=== PATIENT | female | born 1960 | race Caucasian/White ===

== ENCOUNTER 2019-03-02 15:06 | Emergency (ER) | payer OTHER, MEDICAID ==
[2019-03-02] MEDS: LACTATED RINGER'S 1,000 ML IV ×2 (16:19→18:42)
[2019-03-02] MEDS: KETOROLAC 15 MG INJ IV (16:19)
[2019-03-02] MEDS: FAMOTIDINE 20 MG TAB PO (16:19)
[2019-03-02] MEDS: ONDANSETRON 4 MG INJ IV (16:20)
[2019-03-02] MEDS: LIDOCAINE/MYLANTA 40 ML BTL PO (16:20)
[2019-03-02] MEDS: BELLADONNA/PHENOBARBITAL TAB PO (16:20)
[2019-03-02 16:23] LABS: ADD MAN DIFF? NO
[2019-03-02 16:24] LABS: BASOPHILS % 0.2 % (0.0-2.0); HEMATOCRIT 43.8 % (37.0-47.0); HEMOGLOBIN 13.8 g/dl (12.0-16.0); LYMPHOCYTES # 0.8 10^3/ul (0.8-2.9); LYMPHOCYTES % 6.6 % (15.0-51.0); MEAN CORPUSCULAR HEMOGLOBIN 24.6 pg (29.0-33.0); MEAN CORPUSCULAR HGB CONC 31.5 g/dl (32.0-37.0); MEAN CORPUSCULAR VOLUME 78.1 fl (82.0-101.0); MEAN PLATELET VOLUME 9.4 fl (7.4-10.4); MONOCYTE # 0.4 10^3/ul (0.3-0.9); MONOCYTES % 3.2 % (0.0-11.0); NEUTROPHIL # 11.3 10^3/ul (1.6-7.5); NEUTROPHILS % 89.5 % (39.0-77.0); PLATELET COUNT 227 10^3/UL (140-415); RED BLOOD COUNT 5.61 10^6/ul (4.20-5.40); RED CELL DISTRIBUTION WIDTH 14.9 % (11.5-14.5)
[2019-03-02 16:24] LABS: WHITE BLOOD COUNT 12.6 10^3/ul (4.8-10.8)
[2019-03-02 16:39] LABS: ADD UMIC YES; UR ASCORBIC ACID 20 mg/dL (NEGATIVE); UR BACTERIA FEW /HPF (NONE SEEN); UR BILIRUBIN (Dip) NEGATIVE (NEGATIVE); UR BLOOD (Dip) NEGATIVE (NEGATIVE); UR CLARITY CLOUDY (CLEAR); UR COLOR AMBER (YELLOW); UR GLUCOSE (Dip) NEGATIVE (NEGATIVE); UR KETONES (Dip) TRACE mg/dL (NEGATIVE); UR LEUKOCYTE ESTERASE (Dip) 1+ Leu/ul (NEGATIVE); UR MUCUS MANY /HPF (NONE SEEN); UR NITRITE (Dip) POSITIVE (NEGATIVE); UR NONSQUAMOUS EPITHELIAL CELL 2 /HPF (NONE SEEN); UR RBC 2 /HPF (0-5); UR SPECIFIC GRAVITY (Dip) 1.021 (1.003-1.030); UR SQUAMOUS EPITHELIAL CELL MODERATE /HPF (FEW); UR TOTAL PROTEIN (Dip) NEGATIVE (NEGATIVE); UR UROBILINOGEN (Dip) 1+ mg/dL (NEGATIVE); UR WBC 52 /HPF (0-5)
[2019-03-02 16:51] LABS: ALANINE AMINOTRANSFERASE 105 IU/L (13-69); ALBUMIN 4.5 g/dl (3.3-4.9); ALBUMIN/GLOBULIN RATIO 1.09; ALKALINE PHOSPHATASE 179 IU/L (42-121); ANION GAP 11 (5-13); ASPARTATE AMINO TRANSFERASE 147 IU/L (15-46); BILIRUBIN,INDIRECT 0.8 mg/dl (0-1.1); BILIRUBIN,TOTAL 0.8 mg/dl (0.2-1.3); BLOOD UREA NITROGEN 11 mg/dl (7-20); CALCIUM 9.4 mg/dl (8.4-10.2); CARBON DIOXIDE 29 mmol/L (21-31); CHLORIDE 105 mmol/L (97-110); CREATININE 0.67 mg/dl (0.44-1.00); Estimated GFR > 60 mL/min (>60); GLUCOSE 164 mg/dl (70-220); POTASSIUM 4.8 mmol/L (3.5-5.1); SODIUM 145 mmol/L (135-144); TOTAL PROTEIN 8.6 g/dl (6.1-8.1)
[2019-03-02 17:02] LABS: TROPONIN-I < 0.012 ng/ml (0.000-0.120)
[2019-03-02 17:20] LABS: LIPASE 3924 U/L (23-300)
[2019-03-02] MEDS: CEFTRIAXONE 1 GM/50 ML (PMX) 50 ML IVPB (18:42)
== END 2019-03-02 19:45 | disposition home or self-care (01) ==
LOC: E/R 15:06
DX: K85.10 Biliary acute pancreatitis without necrosis or infection (principal); N39.0 Urinary tract infection, site not specified
CPT/HCPCS: 36415; 76705; 80053; 81001; 83690; 84484; 85025; 93005; 96374; 96375; 99285-25

== ENCOUNTER 2019-03-02 20:20 | Inpatient (IN) | payer OTHER ==
[2019-03-02] MEDS: SOD CHLORIDE 0.9% 1,000 ML IV (21:37)
[2019-03-02] MEDS: HYDROmorphONE 1 MG/ML SYG IV (21:38)
[2019-03-02] MEDS: ONDANSETRON 4 MG INJ IV (21:38)
[2019-03-02] MEDS ORDERED: ONDANSETRON 4 MG INJ IV (22:00)
[2019-03-02] MEDS: DEXTROSE 5%-0.45% NACL 1,000 ML IV (22:54)
[2019-03-02] MEDS: PIPER-TAZO 3.375 GM IV (PMX) 100 ML IVPB (22:55)
[2019-03-03] MEDS: morphine 2 MG INJ IV ×4 (01:06→19:29)
[2019-03-03] MEDS: PIPER-TAZO 3.375 GM IV (PMX) 100 ML IVPB ×3 (06:03→20:57)
[2019-03-03] MEDS: LEVOTHYROXINE 100 MCG VIAL IV (06:04)
[2019-03-03] MEDS: DEXTROSE 5%-0.45% NACL 1,000 ML IV ×3 (08:00→22:36)
[2019-03-03] MEDS: FAMOTIDINE 20 MG INJ IV (20:57)
[2019-03-03] MEDS: HEPARIN 5,000 UNIT/1 ML VIAL SC (21:02)
[2019-03-03] MEDS: ACETAMINOPHEN 500 MG TAB PO (22:33)
[2019-03-04] MEDS: LEVOTHYROXINE 100 MCG VIAL IV (05:26)
[2019-03-04] MEDS: PIPER-TAZO 3.375 GM IV (PMX) 100 ML IVPB ×3 (05:26→21:59)
[2019-03-04 05:46] LABS: ADD MAN DIFF? NO
[2019-03-04 06:00] LABS: BASOPHILS % 0.3 % (0.0-2.0); HEMATOCRIT 34.8 % (37.0-47.0); HEMOGLOBIN 10.7 g/dl (12.0-16.0); LYMPHOCYTES # 1.6 10^3/ul (0.8-2.9); LYMPHOCYTES % 13.7 % (15.0-51.0); MEAN CORPUSCULAR HEMOGLOBIN 24.4 pg (29.0-33.0); MEAN CORPUSCULAR HGB CONC 30.7 g/dl (32.0-37.0); MEAN CORPUSCULAR VOLUME 79.3 fl (82.0-101.0); MEAN PLATELET VOLUME 10.2 fl (7.4-10.4); MONOCYTE # 0.9 10^3/ul (0.3-0.9); MONOCYTES % 7.6 % (0.0-11.0); NEUTROPHIL # 8.9 10^3/ul (1.6-7.5); NEUTROPHILS % 77.6 % (39.0-77.0); PLATELET COUNT 170 10^3/UL (140-415); RED BLOOD COUNT 4.39 10^6/ul (4.20-5.40); RED CELL DISTRIBUTION WIDTH 15.3 % (11.5-14.5)
[2019-03-04 06:00] LABS: WHITE BLOOD COUNT 11.4 10^3/ul (4.8-10.8)
[2019-03-04 06:14] LABS: ALANINE AMINOTRANSFERASE 46 IU/L (13-69); ALBUMIN 3.5 g/dl (3.3-4.9); ALBUMIN/GLOBULIN RATIO 1.09; ALKALINE PHOSPHATASE 96 IU/L (42-121); ANION GAP 6 (5-13); ASPARTATE AMINO TRANSFERASE 32 IU/L (15-46); BILIRUBIN,INDIRECT 0.8 mg/dl (0-1.1); BILIRUBIN,TOTAL 0.8 mg/dl (0.2-1.3); BLOOD UREA NITROGEN 6 mg/dl (7-20); CALCIUM 8.3 mg/dl (8.4-10.2); CARBON DIOXIDE 30 mmol/L (21-31); CHLORIDE 106 mmol/L (97-110); CREATININE 0.57 mg/dl (0.44-1.00); Estimated GFR > 60 mL/min (>60); GLUCOSE 128 mg/dl (70-220); MAGNESIUM 2.2 mg/dl (1.7-2.5); PHOSPHORUS 2.9 mg/dl (2.5-4.9); POTASSIUM 3.7 mmol/L (3.5-5.1); SODIUM 142 mmol/L (135-144); TOTAL PROTEIN 6.7 g/dl (6.1-8.1)
[2019-03-04] MEDS: FAMOTIDINE 20 MG INJ IV ×2 (08:40→20:35)
[2019-03-04] MEDS: DEXTROSE 5%-0.45% NACL 1,000 ML IV ×2 (08:41→19:21)
[2019-03-04] MEDS: HEPARIN 5,000 UNIT/1 ML VIAL SC (08:42)
[2019-03-04] MEDS: morphine 2 MG INJ IV ×2 (09:32→13:06)
[2019-03-04 10:02] LABS: LIPASE 325 U/L (23-300)
[2019-03-04 15:43] LABS: INR 1.15; PROTIME 14.8 Sec (11.9-14.9); PT RATIO 1.2
[2019-03-05 05:00] LABS: ADD MAN DIFF? NO
[2019-03-05 05:02] LABS: BASOPHILS % 0.3 % (0.0-2.0); HEMATOCRIT 32.8 % (37.0-47.0); HEMOGLOBIN 10.4 g/dl (12.0-16.0); LYMPHOCYTES # 1.4 10^3/ul (0.8-2.9); LYMPHOCYTES % 13.1 % (15.0-51.0); MEAN CORPUSCULAR HEMOGLOBIN 24.8 pg (29.0-33.0); MEAN CORPUSCULAR HGB CONC 31.7 g/dl (32.0-37.0); MEAN CORPUSCULAR VOLUME 78.3 fl (82.0-101.0); MEAN PLATELET VOLUME 9.5 fl (7.4-10.4); MONOCYTE # 0.7 10^3/ul (0.3-0.9); MONOCYTES % 6.9 % (0.0-11.0); NEUTROPHIL # 8.3 10^3/ul (1.6-7.5); NEUTROPHILS % 78.6 % (39.0-77.0); PLATELET COUNT 187 10^3/UL (140-415); RED BLOOD COUNT 4.19 10^6/ul (4.20-5.40); RED CELL DISTRIBUTION WIDTH 14.8 % (11.5-14.5)
[2019-03-05 05:02] LABS: WHITE BLOOD COUNT 10.6 10^3/ul (4.8-10.8)
[2019-03-05 05:24] LABS: ALANINE AMINOTRANSFERASE 34 IU/L (13-69); ALBUMIN 3.6 g/dl (3.3-4.9); ALBUMIN/GLOBULIN RATIO 1.09; ALKALINE PHOSPHATASE 85 IU/L (42-121); ANION GAP 8 (5-13); ASPARTATE AMINO TRANSFERASE 23 IU/L (15-46); BILIRUBIN,INDIRECT 0.7 mg/dl (0-1.1); BILIRUBIN,TOTAL 0.7 mg/dl (0.2-1.3); BLOOD UREA NITROGEN 6 mg/dl (7-20); CALCIUM 8.3 mg/dl (8.4-10.2); CARBON DIOXIDE 27 mmol/L (21-31); CHLORIDE 106 mmol/L (97-110); CREATININE 0.58 mg/dl (0.44-1.00); Estimated GFR > 60 mL/min (>60); GLUCOSE 126 mg/dl (70-220); MAGNESIUM 2.2 mg/dl (1.7-2.5); PHOSPHORUS 2.9 mg/dl (2.5-4.9); POTASSIUM 3.6 mmol/L (3.5-5.1); SODIUM 141 mmol/L (135-144); TOTAL PROTEIN 6.9 g/dl (6.1-8.1)
[2019-03-05] MEDS: PIPER-TAZO 3.375 GM IV (PMX) 100 ML IVPB ×2 (05:40→13:25)
[2019-03-05] MEDS: LEVOTHYROXINE 100 MCG VIAL IV (05:41)
[2019-03-05] MEDS ORDERED: GLYCOPYRROLATE 0.4 MG INJ ×2 (07:00→19:10)
[2019-03-05] MEDS ORDERED: NALOXONE (0.4 MG/ML) INJ (07:00)
[2019-03-05] MEDS ORDERED: NEOSTIGMINE 3 MG/3 ML SYRINGE ×2 (07:00→19:10)
[2019-03-05] MEDS: FAMOTIDINE 20 MG INJ IV ×2 (09:04→21:56)
[2019-03-05] MEDS: DEXTROSE 5%-0.45% NACL 1,000 ML IV ×2 (09:04→10:07)
[2019-03-05 13:09] LABS: LIPASE 283 U/L (23-300)
[2019-03-05] MEDS ORDERED: MIDAZOLAM 1 MG/ML 2 ML INJ ×2 (17:22→20:40)
[2019-03-05] MEDS ORDERED: PROPOFOL 20 ML (17:22)
[2019-03-05] MEDS ORDERED: ROCURONIUM 50 MG INJ (17:22)
[2019-03-05] MEDS ORDERED: KETOROLAC 30 MG INJ (17:23)
[2019-03-05] MEDS ORDERED: ONDANSETRON 4 MG INJ (17:23)
[2019-03-05] MEDS ORDERED: BUPIVACAINE 0.25%/EPI (SDV) 30 ML INJ (17:39)
[2019-03-05] MEDS ORDERED: LIDOCAINE 1% (MPF) 30 ML INJ (17:40)
[2019-03-05] MEDS ORDERED: IOHEXOL 300MG/ML 30 ML BTL (17:40)
[2019-03-05] MEDS: LIDOCAINE 1% (MPF) 30 ML INJ INJ (17:45)
[2019-03-05] MEDS: BUPIVACAINE 0.25%/EPI (SDV) 30 ML INJ INJ (17:45)
[2019-03-05] MEDS ORDERED: HYDROmorphONE 1 MG/5 ML IV SYRINGE IV (20:00)
[2019-03-05] MEDS ORDERED: ONDANSETRON 4 MG INJ IV (20:00)
[2019-03-05] MEDS ORDERED: morphine 2 MG INJ IV (20:00)
[2019-03-05] MEDS ORDERED: HYDROCODONE/APAP (5/325) TAB PO ×2 (20:00)
[2019-03-05] MEDS: FENTAnyl 50 MCG/ML VIAL IV ×2 (20:35→20:54)
[2019-03-05] MEDS: MIDAZOLAM 1 MG/ML 2 ML INJ IV (21:00)
[2019-03-06] MEDS: LEVOTHYROXINE 25 MCG TAB PO (05:49)
[2019-03-06 05:56] LABS: ADD MAN DIFF? NO
[2019-03-06 06:02] LABS: BASOPHILS % 0.1 % (0.0-2.0); HEMATOCRIT 30.4 % (37.0-47.0); HEMOGLOBIN 9.8 g/dl (12.0-16.0); LYMPHOCYTES # 1.6 10^3/ul (0.8-2.9); LYMPHOCYTES % 16.2 % (15.0-51.0); MEAN CORPUSCULAR HEMOGLOBIN 24.8 pg (29.0-33.0); MEAN CORPUSCULAR HGB CONC 32.2 g/dl (32.0-37.0); MEAN PLATELET VOLUME 10.2 fl (7.4-10.4); MONOCYTE # 0.6 10^3/ul (0.3-0.9); NEUTROPHIL # 7.4 10^3/ul (1.6-7.5); NEUTROPHILS % 76.7 % (39.0-77.0); PLATELET COUNT 197 10^3/UL (140-415); RED BLOOD COUNT 3.95 10^6/ul (4.20-5.40); RED CELL DISTRIBUTION WIDTH 14.9 % (11.5-14.5)
[2019-03-06 06:02] LABS: WHITE BLOOD COUNT 9.7 10^3/ul (4.8-10.8)
[2019-03-06 07:07] LABS: ALANINE AMINOTRANSFERASE 40 IU/L (13-69); ALBUMIN 3.2 g/dl (3.3-4.9); ALBUMIN/GLOBULIN RATIO 0.96; ALKALINE PHOSPHATASE 91 IU/L (42-121); ANION GAP 8 (5-13); ASPARTATE AMINO TRANSFERASE 49 IU/L (15-46); BILIRUBIN,INDIRECT 0.4 mg/dl (0-1.1); BILIRUBIN,TOTAL 0.4 mg/dl (0.2-1.3); BLOOD UREA NITROGEN 9 mg/dl (7-20); CARBON DIOXIDE 26 mmol/L (21-31); CHLORIDE 110 mmol/L (97-110); CREATININE 0.52 mg/dl (0.44-1.00); Estimated GFR > 60 mL/min (>60); GLUCOSE 96 mg/dl (70-220); MAGNESIUM 2.2 mg/dl (1.7-2.5); PHOSPHORUS 3.9 mg/dl (2.5-4.9); POTASSIUM 3.6 mmol/L (3.5-5.1); SODIUM 144 mmol/L (135-144); TOTAL PROTEIN 6.5 g/dl (6.1-8.1)
[2019-03-06] MEDS: FAMOTIDINE 20 MG INJ IV (08:32)
== END 2019-03-06 16:53 | disposition home or self-care (01) | DRG 418 ==
LOC: E/R 20:20 → MS1 20:31
PROC: 0FT44ZZ Resection of Gallbladder, Percutaneous Endoscopic Approach (ICD-10-PCS; principal; 2019-03-05 16:30)
PROC: 0FB04ZX Excision of Liver, Percutaneous Endoscopic Approach, Diagnostic (ICD-10-PCS; 2019-03-05 16:30)
DX: K85.10 Biliary acute pancreatitis without necrosis or infection (principal); N39.0 Urinary tract infection, site not specified; K80.66 Calculus of gallbladder and bile duct with acute and chronic cholecystitis without obstruction; E03.9 Hypothyroidism, unspecified; D50.9 Iron deficiency anemia, unspecified; I10 Essential (primary) hypertension; E66.3 Overweight; K76.9 Liver disease, unspecified
CPT/HCPCS: 71045; 74181; 80053; 83690; 83735; 84100; 84703; 85025; 85610; 88304; 88307; 88313